=== PATIENT | male | born 1970 | race Caucasian/White ===

== ENCOUNTER 2016-04-11 23:40 | Emergency (ER) | payer MEDICAID ==
[~2016-04-11] VITALS: Ht 177.8 cm; Wt 112.0 kg
[~2016-04-11 23:40] MED LIST: METH750T2 PO; TRAM50 PO
[2016-04-11 23:46] VITALS: BP 122/79; PULSE 109; RESP 16; TEMP 98.4; O2SAT 96
[2016-04-12] MEDS ORDERED: IBUP400T20 PO (01:16)
[2016-04-12] MEDS ORDERED: PERM5CRE11 TOPICAL (01:37)
== END 2016-04-12 00:50 | disposition left against medical advice (07) ==
LOC: PHED 23:40
DX: Z53.21 Procedure and treatment not carried out due to patient leaving prior to being seen by health care provider (principal)
CPT/HCPCS: 99281

== ENCOUNTER 2016-04-12 00:37 | Emergency (ER) | payer MEDICAID ==
[~2016-04-12] VITALS: Ht 177.8 cm; Wt 112.0 kg
[2016-04-12 00:53] VITALS: BP 122/79; PULSE 109; RESP 16; TEMP 98.4; O2SAT 96
[2016-04-12] MEDS ORDERED: IBUP400T20 PO (01:16)
[2016-04-12] MEDS ORDERED: PERM5CRE11 TOPICAL (01:37)
--- NOTE | 2016-04-12 01:38 | PD ---
HPI Chief Complaint: Skin Problem Time Seen by Provider: 01:31 Travel History International Travel<30 days: No Contact w/Intl Traveler<30days: No Traveled to known affect area: No History of Present Illness HPI The patient is a 45-year-old male that had scabies along with 3 other members of his family. He had initially around the belt line and between the buttocks. He got partial relief with permethrin ointment. He did not run all of his bed linens through the hot dryer. There was significant chance of re-exposure to scabies. He states his scabies is better but not cured. PFSH Past Medical History Diminished Hearing: No Musculoskeletal: Yes (chronic pain left hip, siatic pain same hip) Immunizations Current: Yes Influenza Vaccination: No Past Surgical History Surgical History: No Previous Surgery Social History Alcohol Use: Yes ([employer]) Tobacco Use: No (QUIT 2015) Substance Use: No Allergies-Medications (Allergen,Severity, Reaction): Coded Allergies: No Known Allergies (Unverified , 04/12/16) Reported Meds & Prescriptions Reported Meds & Active Scripts Active Reported Ibuprofen 400 Mg Tab 400 Mg PO Q8H PRN Review of Systems Except as stated in HPI: all other systems reviewed are Neg Physical Exam Narrative GENERAL: Well-nourished, alert and oriented, slightly obese patient in slight apparent distress with his pruritic rash. SKIN: Warm and dry. There are multiple lesions consistent with scabies around buttocks and between the buttocks. He also has some redness and lesions around the belt line. He has scattered lesions on his abdomen, legs and arms. HEAD: Normocephalic. EYES: No scleral icterus. No injection or drainage. NECK: Supple, trachea midline. No JVD or lymphadenopathy. CARDIOVASCULAR: Regular rate and rhythm without murmurs, gallops, or rubs. RESPIRATORY: Breath sounds equal bilaterally. No accessory muscle use. GASTROINTESTINAL: Abdomen soft, non-tender, nondistended. MUSCULOSKELETAL: No cyanosis, or edema. BACK: Nontender without obvious deformity. No CVA tenderness. Data Data Last Documented VS Vital Signs Date Time Temp Pulse Resp B/P Pulse Ox O2 Delivery O2 Flow Rate FiO2 04/12/16 01:21 94 16 04/12/16 00:53 98.4 122/79 96 MDM Medical Decision Making Medical Screen Exam Complete: Yes Emergency Medical Condition: Yes Medical Record Reviewed: Yes Differential Diagnosis Scabies, other insect bites, allergic rash Narrative Course The patient does appear to have scabies. He needs to run his clothes dryer to avoid reinfection. We will continue to prescribe permethrin cream. Diagnosis Primary Impression: Scabies infestation Additional Instructions: As we discussed, run bed linens through the hot dryer and any other linens that have been exposed. Follow-up with your primary care physician. Med/Other Pt SpecificInfo: Prescription(s) given Scripts Permethrin Topical (Elimite Topical)5% Cream1 Applic TOPICAL ONCE #1 TUBE Ref 2 Prov:Regino Lyn MD 04/12/16 Disposition: 01 DISCHARGE HOME Condition: Stable Regino Lyn MD Apr 12, 2016 01:38
== END 2016-04-12 03:33 | disposition home or self-care (01) ==
LOC: PHED 00:37
DX: B86 Scabies (principal)
CPT/HCPCS: 99282

== ENCOUNTER 2016-07-30 00:58 | Emergency (ER) | payer MEDICAID ==
[~2016-07-30] VITALS: Ht 177.8 cm; Wt 114.7 kg
[~2016-07-30 00:58] MED LIST changes: +IBUP400T20 PO; -METH750T2 PO; +PERM5CRE11 TOPICAL; -TRAM50 PO
[2016-07-30 01:04] VITALS: BP 138/94; PULSE 105; RESP 14; O2SAT 96
[2016-07-30] MEDS ORDERED: SODIUM CHLOR 0.9% 1000 ML INJ 1,000 ML IV ONE ×2 (01:24→03:00)
--- NOTE | 2016-07-30 01:34 | PD ---
HPI Chief Complaint: GI Complaint Time Seen by Provider: 01:24 Travel History International Travel<30 days: No Contact w/Intl Traveler<30days: No Traveled to known affect area: No History of Present Illness HPI 45-year-old male presents to the emergency department for complaint of one day of abdominal discomfort associated with multiple episodes of diarrhea. Patient denies fever chills nausea vomiting chest pain shortness of breath flank pain dysuria frequency urgency or hematuria. Patient states no melena or hematochezia. Patient denies any dietary indiscretion well water ingestion or foreign travel. Patient states diarrhea has started to decrease however due to persistent diarrhea and intermittent abdominal pain decided to come to the emergency room to be evaluated. Patient did have to miss work today reports he will need a work excuse reportedly. Patient rates his current discomfort 0/10 in intensity earlier was 3-4/10 in intensity. PFSH Past Medical History Narrative Medical Left sciatica; no surgery; alcohol use; nursing notes reviewed Diminished Hearing: No Musculoskeletal: Yes (chronic pain left hip, siatic pain same hip) Immunizations Current: Yes Tetanus Vaccination: < 5 Years Influenza Vaccination: No Past Surgical History Surgical History: No Previous Surgery Social History Alcohol Use: Yes ([employer]) Tobacco Use: No (QUIT 2015) Substance Use: No Allergies-Medications (Allergen,Severity, Reaction): Coded Allergies: No Known Allergies (Unverified , 07/30/16) Reported Meds & Prescriptions Reported Meds & Active Scripts Active Cipro (Ciprofloxacin HCl) 500 Mg Tab 500 Mg PO BID 7 Days Reported Ibuprofen 400 Mg Tab 400 Mg PO Q8H PRN Review of Systems Except as stated in HPI: all other systems reviewed are Neg General / Constitutional: No: Fever, Chills HENT: No: Headaches, Neck Pain Cardiovascular: No: Chest Pain or Discomfort Respiratory: No: Cough, Shortness of Breath Gastrointestinal: Positive: Diarrhea, Abdominal Pain, No: Nausea, Vomiting, Hematemesis, Hematochezia, Loss of Appetite Genitourinary: No: Urgency, Frequency, Dysuria, Decreased Urinary Output, Flank Pain Musculoskeletal: No: Myalgias, Arthralgias Skin: No Rash Neurologic: No: Weakness, Dizziness, Syncope Psychiatric: No: Anxiety Endocrine: No: Heat Intolerance Hematologic/Lymphatic: No: Easy Bruising Physical Exam Narrative GENERAL: Well-developed well-nourished male in no distress no respiratory distress SKIN: Warm and dry. HEAD: Normocephalic. EYES: No scleral icterus. No injection or drainage. NECK: Supple, trachea midline. No JVD or lymphadenopathy. CARDIOVASCULAR: Regular rate and rhythm without murmurs, gallops, or rubs. RESPIRATORY: Breath sounds equal bilaterally. No accessory muscle use. GASTROINTESTINAL: Abdomen soft, non-tender, nondistended. MUSCULOSKELETAL: No cyanosis, or edema. BACK: Nontender without obvious deformity. No CVA tenderness. Data Data Last Documented VS Vital Signs Date Time Temp Pulse Resp B/P Pulse Ox O2 Delivery O2 Flow Rate FiO2 07/30/16 03:10 79 16 133/85 96 Room Air Orders Complete Blood Count With Diff (07/30/16 01:24) Basic Metabolic Panel (Bmp) (07/30/16 01:24) Urinalysis - C+S If Indicated (07/30/16 01:24) Lipase (07/30/16 01:24) Iv Access Insert/Monitor (07/30/16 01:24) Oximetry (07/30/16 01:24) Sodium Chlor 0.9% 1000 Ml Inj (Ns 1000 M (07/30/16 01:24) Urine Culture (07/30/16 01:45) Sodium Chlor 0.9% 1000 Ml Inj (Ns 1000 M (07/30/16 03:00) Labs Laboratory Tests Test 07/30/16 01:45 White Blood Count 11.9 TH/MM3 Red Blood Count 5.20 MIL/MM3 Hemoglobin 15.4 GM/DL Hematocrit 45.6 % Mean Corpuscular Volume 87.7 FL Mean Corpuscular Hemoglobin 29.6 PG Mean Corpuscular Hemoglobin 33.8 % Concent Red Cell Distribution Width 12.7 % Platelet Count 285 TH/MM3 Mean Platelet Volume 7.9 FL Neutrophils (%) (Auto) 75.6 % Lymphocytes (%) (Auto) 16.2 % Monocytes (%) (Auto) 5.4 % Eosinophils (%) (Auto) 2.4 % Basophils (%) (Auto) 0.4 % Neutrophils # (Auto) 9.1 TH/MM3 Lymphocytes # (Auto) 1.9 TH/MM3 Monocytes # (Auto) 0.6 TH/MM3 Eosinophils # (Auto) 0.3 TH/MM3 Basophils # (Auto) 0.0 TH/MM3 CBC Comment DIFF FINAL Differential Comment Urine Color YELLOW Urine Turbidity CLEAR Urine pH 5.5 Urine Specific [place] 1.022 Urine Protein NEG mg/dL Urine Glucose (UA) NEG mg/dL Urine Ketones NEG mg/dL Urine Occult Blood NEG Urine Nitrite NEG Urine Bilirubin NEG Urine Leukocyte Esterase NEG Urine RBC 0-3 /hpf Urine WBC 9-14 /hpf Urine WBC Clumps FEW Urine Squamous Epithelial 0-5 /hpf Cells Urine Mucus MOD /lpf Microscopic Urinalysis Comment CULTURE INDICATED Sodium Level 143 MEQ/L Potassium Level 4.0 MEQ/L Chloride Level 106 MEQ/L Carbon Dioxide Level 29.3 MEQ/L Anion Gap 8 MEQ/L Blood Urea Nitrogen 22 MG/DL Creatinine 1.10 MG/DL Estimat Glomerular Filtration 72 ML/MIN Rate Random Glucose 169 MG/DL Calcium Level 9.2 MG/DL Lipase 203 U/L [facility] Medical Decision Making Medical Screen Exam Complete: Yes Emergency Medical Condition: Yes Medical Record Reviewed: Yes Interpretation(s) CBC & BMP Diagram 07/30/16 01:45 Vital Signs Date Time Temp Pulse Resp B/P Pulse Ox O2 Delivery O2 Flow Rate FiO2 07/30/16 02:00 85 18 95 Room Air 07/30/16 01:56 92 18 141/73 95 Room Air 07/30/16 01:13 18 07/30/16 01:04 105 14 138/94 96 UA: clumped wbc's wbc's;cx indicated Differential Diagnosis Viral syndrome, gastroenteritis, colitis, food borne illness, dehydration, electrolyte disturbance Narrative Course IV access obtained specimens collected and sent for resulting urine specimen collected patient administered 1 L normal saline Patient identified to have white blood cells clumped white blood cells and urine ; patient denies urethral discharge or dysuria frequency or urgency he also denies any flank pain. @2:22 AM the abdomen is soft nontender no guarding no rebound total white cell count is mildly elevated 11,975% neutrophils chemistries are grossly within normal limits except for postprandial glucose of 169 and urinalysis identifies white blood cells and told white blood cells otherwise normal with culture indicated. Abdomen is nontender patient is afebrile; at this time patient is tolerating oral hydration. Will start patient on antibiotic for nonspecific urethritis v cystitis and diarrheal illness. Patient reports that he feels well is desirous of being discharged home denies any concern of being exposed to any STDs/STI and does not want to be tested for this. Sepsis Criteria SIRS Criteria (2 or more): Heart rate over 90 Diagnosis Primary Impression: Diarrhea Qualified Code: R19.7 - Diarrhea, unspecified type Additional Impressions: Intestinal colic Pyuria Referrals: Primary Care Physician call for appointment Patient Instructions: General Instructions Departure Forms: Tests/Procedures, Work Release Special Instructions: no work x 1 day Additional Instructions: Increase fluid hydration Follow-up with primary care provider Follow clear liquid diet for next 12-24 hours advance as tolerated bland/Ministerio diet then regular diet as tolerated Return to the emergency department for a concerns or change in condition Monitor temperature for fever and take as needed acetaminophen/Tylenol for fever 100.4F or greater Med/Other Pt SpecificInfo: Prescription(s) given Scripts Ciprofloxacin (Cipro)500 Mg [id number] Mg PO BID 7 Days Ref 0 Prov:Yoli Salas MD 07/30/16 Disposition: 01 DISCHARGE HOME Condition: Stable Yoli Salas MD Jul 30, 2016 01:34
[2016-07-30 01:56] VITALS: BP 141/73; PULSE 92; RESP 18; O2SAT 95
[2016-07-30 01:56] LABS: AUTOMATED NEUTROPHIL # 9.1 TH/MM3 (1.8-7.7); BASOPHIL % 0.4 % (0.0-2.0); BLOOD, URINE NEG (NEG); EOSINOPHIL # 0.3 TH/MM3 (0-0.4); EOSINOPHIL % 2.4 % (0.0-4.0); GLUCOSE,URINE NEG (NEG); HEMATOCRIT 45.6 % (39.0-51.0); KETONE, URINE NEG (NEG); LYMPH % 16.2 % (9.0-44.0); LYMPHOCYTE # 1.9 TH/MM3 (1.0-4.8); MEAN CELL VOLUME 87.7 FL (80.0-100.0); MEAN CORPUSCULAR HEMOGLOBIN 29.6 PG (27.0-34.0); MEAN CORPUSCULAR HGB CONC 33.8 % (32.0-36.0); MONO % 5.4 % (0.0-8.0); NEUT % 75.6 % (16.0-70.0); NITRITE,URINE NEG (NEG); PH, URINE 5.5 (5.0-8.5); PLATELET COUNT 285 TH/MM3 (150-450); RED CELL DISTRIBUTION WIDTH 12.7 % (11.6-17.2); WHITE BLOOD COUNT 11.9 TH/MM3 (4.0-11.0)
[2016-07-30 02:00] VITALS: PULSE 85; RESP 18; O2SAT 95
[2016-07-30 02:01] LABS: HEMO FLAGS DIFF FINAL
[2016-07-30 02:05] LABS: MUCUS URINE MOD /lpf (OCC); URINE COLOR YELLOW (YELLW/STRAW)
[2016-07-30 02:06] LABS: SQUAMOUS EPITHELIAL CELL URINE 0-5 /hpf (0-5)
[2016-07-30 02:07] LABS: COMMENT (UR) CULTURE INDICATED; CULTURE IF INDICATED CULTURE INDICATED; RBC, URINE 0-3 /hpf (0-3)
[2016-07-30 02:15] LABS: BICARBONATE 29.3 MEQ/L (21.0-32.0)
[2016-07-30] MEDS ORDERED: CIPR-9 PO (02:55)
[2016-07-30 03:10] VITALS: BP 133/85; PULSE 79; RESP 16; O2SAT 96
== END 2016-07-30 04:08 | disposition home or self-care (01) ==
LOC: PHED 00:58
DX: R19.7 Diarrhea, unspecified (principal); N39.0 Urinary tract infection, site not specified; B96.89 Other specified bacterial agents as the cause of diseases classified elsewhere
CPT/HCPCS: 80048; 81001; 83690; 85025; 87086; 96360; 99284; J7030